=== PATIENT | female | born 1965 | race Caucasian/White ===

== ENCOUNTER → 2016-10-20 | Outpatient (REF) | payer BC ==
[2016-10-20 11:59] LABS: ALBUMIN 3.8 GM/DL (3.2-5.2); ALBUMIN/GLOBULIN RATIO 1.12 (1.00-1.93); ALKALINE PHOSPHATASE 56 U/L (45-117); ALT/SGPT 16 U/L (12-78); ANION GAP 6 MEQ/L (8-16); AST/SGOT 12 U/L (15-37); BILIRUBIN,TOTAL 0.5 MG/DL (0.2-1.0); BLOOD UREA NITROGEN 15 MG/DL (7-18); CALCIUM LEVEL 8.6 MG/DL (8.5-10.1); CARBON DIOXIDE LEVEL 28 MEQ/L (21-32); CHLORIDE LEVEL 108 MEQ/L (98-107); CHOLESTEROL LEVEL 166 MG/DL (<200); CREATININE FOR GFR 0.83 MG/DL (0.55-1.02); GLOMERULAR FILTRATION RATE > 60.0 (>51); GLUCOSE, FASTING 87 MG/DL (70-105); POTASSIUM SERUM 4.8 MEQ/L (3.5-5.1); SODIUM LEVEL 142 MEQ/L (136-145); TOTAL PROTEIN 7.2 GM/DL (6.4-8.2); TRIGLYCERIDES LEVEL 98 MG/DL (<150)
== END ==
LOC: M SFHCLERA 08:30
PROVIDERS: ATTEND Family Medicine
DX: E78.2 Mixed hyperlipidemia (principal)

== ENCOUNTER → 2018-02-13 | Outpatient (REF) | payer OTHER, MEDICAID ==
[2018-02-13 11:27] LABS: CHOLESTEROL LEVEL 240 MG/DL (<200); CHOLESTEROL RISK RATIO 5.333 (<5); HDL CHOLESTEROL 45 MG/DL (>40); LDL CHOLESTEROL 168.4 MG/DL (<100); NON-HDL-C 195 MG/DL; TRIGLYCERIDES LEVEL 133 MG/DL (<150)
== END ==
LOC: M SFHCLERA 08:13
DX: Z13.220 Encounter for screening for lipoid disorders (principal)

== ENCOUNTER → 2019-03-12 | Outpatient (REF) | payer BC ==
[2019-03-12 11:50] LABS: BASO # 0.1 10^3/uL (0.0-0.2); BASO % 1.2 % (0.0-1.0); EOS # 0.1 10^3/uL (0.0-0.50); EOS % 2.1 % (0.0-3.0); HEMATOCRIT 42.8 % (36.0-47.0); HEMOGLOBIN 13.9 g/dl (12.0-15.5); LYMPH # 2.4 10^3/uL (1.5-4.5); LYMPH % 41.5 % (24.0-44.0); MEAN CORPUSCULAR HEMOGLOBIN 30.4 pg (27.0-33.0); MEAN CORPUSCULAR HGB CONC 32.5 g/dl (32.0-36.5); MEAN CORPUSCULAR VOLUME 93.7 fl (80.0-96.0); MONO # 0.4 10^3/uL (0.0-0.8); MONO % 6.6 % (0.0-5.0); NEUTROPHILS # 2.8 10^3/uL (1.8-7.7); NEUTROPHILS % 48.4 % (36.0-66.0); PLATELET COUNT, AUTOMATED 233 10^3/uL (150-450); RED BLOOD COUNT 4.57 10^6/uL (4.00-5.40); WHITE BLOOD COUNT 5.7 10^3/uL (4.0-10.0)
[2019-03-12 12:18] LABS: CHOLESTEROL RISK RATIO 4.666 (<5)
== END ==
LOC: M SFHCLERA 08:41
PROVIDERS: ATTEND Family Medicine
DX: R59.9 Enlarged lymph nodes, unspecified (principal); E78.5 Hyperlipidemia, unspecified

== ENCOUNTER 2019-12-04 07:28 | Emergency (ER) | payer BC ==
[~2019-12-04] VITALS: Ht 175.3 cm; Wt 96.3 kg
[2019-12-04] MEDS ORDERED: KETOROLAC 30 MG/ML VIAL (J1885) IV ONE (08:15)
[2019-12-04 08:31] LABS: BASO # 0.1 10^3/uL (0.0-0.2); BASO % 0.8 % (0.0-1.0); EOS # 0.1 10^3/uL (0.0-0.5); EOS % 1.8 % (0.0-3.0); HEMATOCRIT 45.3 % (36.0-47.0); HEMOGLOBIN 14.8 g/dl (12.0-15.5); LYMPH # 2.8 10^3/uL (1.5-5.0); LYMPH % 42.3 % (24.0-44.0); MEAN CORPUSCULAR HEMOGLOBIN 29.8 pg (27.0-33.0); MEAN CORPUSCULAR HGB CONC 32.7 g/dl (32.0-36.5); MEAN CORPUSCULAR VOLUME 91.1 fl (80.0-96.0); MONO # 0.5 10^3/uL (0.0-0.8); MONO % 7.4 % (0.0-5.0); NEUTROPHILS # 3.2 10^3/uL (1.5-8.5); NEUTROPHILS % 47.5 % (36.0-66.0); PLATELET COUNT, AUTOMATED 232 10^3/uL (150-450); RED BLOOD COUNT 4.97 10^6/uL (4.00-5.40); WHITE BLOOD COUNT 6.6 10^3/uL (4.0-10.0)
--- NOTE | 2019-12-04 08:42 | REP ---
Portable chest x-ray: Single view. History: Chest pain. Comparison chest x-ray: March 12, 2019. Findings: EKG monitoring electrodes overlie the chest. Lungs are well inflated and clear. The pleural angles are sharp. Heart size is normal. Pulmonary vasculature is not increased. No significant bony abnormalities seen. Impression: No acute disease. Electronically Signed by Michel Arreola MD 12/04/2019 08:33 A
[2019-12-04 08:57] LABS: BLOOD UREA NITROGEN 17 MG/DL (7-18); CARBON DIOXIDE LEVEL 27 MEQ/L (21-32); CHLORIDE LEVEL 107 MEQ/L (98-107); CK-MB VALUE MASS < 1.0 NG/ML (<3.6); CPK CREATINE PHOSPHOKINASE 68 U/L (26-192); CREATININE FOR GFR 0.94 MG/DL (0.55-1.30); GLOMERULAR FILTRATION RATE > 60.0 (>51); GLUCOSE, FASTING 94 MG/DL (70-100); MB/CK RELATIVE INDEX 1.47 (< OR =4); POTASSIUM SERUM 4.3 MEQ/L (3.5-5.1); SODIUM LEVEL 141 MEQ/L (136-145); TROPONIN I < 0.02 NG/ML (< 0.10)
[2019-12-04] MEDS ORDERED: ISOVUE-370 76% 100ML VIAL (Q9967) As Ordered ONE (09:34)
--- NOTE | 2019-12-04 10:11 | REP ---
CT pulmonary angiogram: With IV contrast. History: Rule out left-sided pulmonary embolus. Chest pain. Comparison studies: Comparison made with chest x-ray from this date. No comparison chest CT study. Contrast dose: 75 ML of Isovue [address] technique: Helical scanning is acquired and overlapping 1.5 mm and contiguous 3 mm axial images are reformatted. In addition, maximum intensity projection and multiplanar re-formation images are generated in sagittal and coronal imaging projections. CT pulmonary angiographic findings: There is good opacification in the pulmonary arterial tree. There is no evidence of vessel cutoff or filling defect to suggest pulmonary embolism. Thoracic aorta shows no evidence of aneurysm or dissection. No pleural or pericardial effusion is seen. No hilar or mediastinal mass or adenopathy is observed. There is a small sliding-type hiatal hernia. No adrenal lesion is seen. Visualized upper abdominal structures are unremarkable. There is a nodular density in the left breast containing a small calcific or metallic density. Review of a remote prior left breast mammography demonstrates a needle biopsy marker clip in this nodule. This is consistent with a benign fibroadenoma. No other extrathoracic finding. Bone window settings show no bony destructive lesion. The lung quiñonez are clear except for granulomatous calcifications which are scattered in the left lung. No significant pulmonary nodule is appreciated. Impression: No CT evidence of pulmonary embolus. Scattered granulomatous calcifications in the left lung. No active cardiopulmonary disease seen. Small sliding hiatal hernia. Electronically Signed by Michel Arreola MD 12/04/2019 10:02 A
[2019-12-04 11:14] LABS: CK-MB VALUE MASS < 1.0 NG/ML (<3.6); CPK CREATINE PHOSPHOKINASE 65 U/L (26-192); MB/CK RELATIVE INDEX 1.54 (< OR =4); TROPONIN I < 0.02 NG/ML (< 0.10)
[2019-12-04] MEDS ORDERED: NAPR-837 PO (11:24)
[2019-12-04 11:30] VITALS: BP 116/62
--- NOTE | 2019-12-05 06:51 | ECGEPIP ---
[facility] - ED Test Date: 2019-12-04 Pat Name: JACOB HUFF Department: Room: - Gender: Female Linen Folder: : 1965 Requested By: Jroge Brink Order Number: [id number] Reading MD: Jorge Osorio Measurements Intervals [place] Rate: 82 P: 11 ID: 158 QRS: -15 QRSD: 93 T: 29 QT: 375 QTc: 439 Interpretive Statements SINUS RHYTHM POOR R WAVE PROGRESSION MODERATE VOLTAGE CRITERIA FOR LVH, CONSIDER NORMAL VARIANT NONSPECIFIC T-WAVE ABNORMALITY NO PRIORS FOR COMPARISON Electronically Signed on 12-05-2019 6:51:13 EST by Jorge Osorio
--- NOTE | 2019-12-05 06:52 | ECGEPIP ---
[facility] - ED Test Date: 2019-12-04 Pat Name: JACOB HUFF Department: Room: - Gender: Female Clinical Trials Data Coordinator: : 1965 Requested By: Jorge Brink Order Number: [id number] Reading MD: Estrella Valdez Measurements Intervals [place] Rate: 73 P: 1 IA: 164 QRS: -14 QRSD: 89 T: -4 QT: 392 QTc: 433 Interpretive Statements SINUS RHYTHM VOLTAGE CRITERIA FOR LVH NSTTW abnormalities DECREASED RATE 12/04/19 Electronically Signed on 12-05-2019 6:51:48 EST by Estrella Valdez
== END 2019-12-04 11:38 | disposition home or self-care (01) ==
LOC: M ED 07:28
DX: R07.89 Other chest pain (principal); S46.912A Strain of unspecified muscle, fascia and tendon at shoulder and upper arm level, left arm, initial encounter; X58.XXXA Exposure to other specified factors, initial encounter; Y92.9 Unspecified place or not applicable; Y93.9 Activity, unspecified; Y99.9 Unspecified external cause status; R91.8 Other nonspecific abnormal finding of lung field
CPT/HCPCS: 71045; 71275; 80048; 82550; 82553; 84484; 85025; 85379; 93005; 93041; 94760; 96374; 99285; J1885; Q9967

== ENCOUNTER → 2020-03-24 | Outpatient (REF) | payer BC ==
[~2020-03-24] MED LIST: NAPR-837 PO
[2020-03-24 12:21] LABS: BASO % 0.8 % (0.0-1.0); EOS # 0.1 10^3/uL (0.0-0.5); EOS % 1.4 % (0.0-3.0); HEMATOCRIT 46.6 % (36.0-47.0); HEMOGLOBIN 14.9 g/dl (12.0-15.5); LYMPH # 2.2 10^3/uL (1.5-5.0); LYMPH % 42.5 % (24.0-44.0); MEAN CORPUSCULAR VOLUME 93.8 fl (80.0-96.0); MONO # 0.4 10^3/uL (0.0-0.8); MONO % 8.6 % (0.0-5.0); NEUTROPHILS # 2.4 10^3/uL (1.5-8.5); NEUTROPHILS % 46.5 % (36.0-66.0); PLATELET COUNT, AUTOMATED 223 10^3/uL (150-450); RED BLOOD COUNT 4.97 10^6/uL (4.00-5.40); WHITE BLOOD COUNT 5.1 10^3/uL (4.0-10.0)
[2020-03-24 12:49] LABS: CHOLESTEROL RISK RATIO 5.869 (<5); THYROID STIMULATING HORMONE 0.983 uIU/ML (0.358-3.740)
[2020-03-25 09:33] LABS: HEPATITIS C VIRUS ABY INDEX 0.2 INDEX (<0.8)
== END ==
LOC: M SFHCLERA 09:05
PROVIDERS: ATTEND Family Medicine
DX: Z11.59 Encounter for screening for other viral diseases (principal); E78.2 Mixed hyperlipidemia; R00.2 Palpitations

== ENCOUNTER → 2022-07-20 | Outpatient (CLI) | payer OTHER | LOC: M WHC 08:22 | PROVIDERS: ATTEND Nurse Practitioner Family | DX: Z12.31 Encounter for screening mammogram for malignant neoplasm of breast (principal) ==

== ENCOUNTER → 2023-05-18 | Outpatient (CLI) | payer OTHER | LOC: M PLARAD 07:45 | PROVIDERS: ATTEND Orthopaedic Surgery Hand Surgery | DX: M25.532 Pain in left wrist (principal) ==

== ENCOUNTER 2023-07-03 07:18 | Day surgery (SDC) | payer OTHER ==
[~2023-07-03] VITALS: Ht 175.3 cm; Wt 79.5 kg
[~2023-07-03 07:18] MED LIST changes: +SEMA1PEN4 SQ; +SIMV20TA22 PO; +ceFAZolin SOD 2 GM in IV 1 EA IV ONE
[2023-07-03] MEDS ORDERED: fentaNYL 100 MCG/2 ML INJECTION As Ordered ONE (07:49)
[2023-07-03] MEDS ORDERED: ONDANSETRON 4MG 2ML VIAL As Ordered ONE (07:50)
[2023-07-03] MEDS ORDERED: propofoL 200 MG/20 ML VIAL As Ordered ONE (07:50)
[2023-07-03] MEDS ORDERED: LIDOCAINE 2% 100MG/5ML SDV (FOR ANES.) As Ordered ONE (07:50)
[2023-07-03] MEDS ORDERED: MIDAZOLAM INJ 2MG/2ML VIAL As Ordered ONE (07:50)
[2023-07-03] MEDS ORDERED: ACETAMINOPHEN 1000MG 100ML IV BAG As Ordered ONE (07:54)
[2023-07-03] MEDS ORDERED: KETOROLAC 60MG 2ML VIAL As Ordered ONE (07:54)
[2023-07-03] MEDS ORDERED: LR 1,000 ML IV SCH ×2 (08:05→09:40)
[2023-07-03] MEDS ORDERED: BACITRACIN OINTMENT 30GM TUBE As Ordered ONE (08:39)
[2023-07-03] MEDS ORDERED: fentaNYL 100 MCG/2 ML INJECTION IV PRN (09:40)
[2023-07-03] MEDS ORDERED: HYDROMORPHONE HCL 0.5 MG/ 0.5 ML SYRINGE IV PRN (09:40)
[2023-07-03] MEDS ORDERED: oxyCODONE 5MG TAB PO PRN (09:40)
[2023-07-03] MEDS ORDERED: ONDANSETRON 4MG 2ML VIAL IV PRN (09:40)
[2023-07-03 10:22] VITALS: BP 133/64; TEMP 97.5; O2SAT 98
== END 2023-07-03 10:55 | disposition home or self-care (01) ==
LOC: M SDC 07:18
PROVIDERS: ATTEND Orthopaedic Surgery Hand Surgery
DX: D21.12 Benign neoplasm of connective and other soft tissue of left upper limb, including shoulder (principal); E78.00 Pure hypercholesterolemia, unspecified; Z79.899 Other long term (current) drug therapy; Z79.84 Long term (current) use of oral hypoglycemic drugs
CPT/HCPCS: 26115; 88305; 88341; 88342; J0131; J0665; J0690; J1100; J1885; J2250; J2405; J3010

== ENCOUNTER → 2023-07-12 | Outpatient (CLI) | payer OTHER ==
[~2023-07-12] MED LIST changes: -ceFAZolin SOD 2 GM in IV 1 EA IV ONE
== END ==
LOC: M WHC 06:52
PROVIDERS: ATTEND Student in an Organized Health Care Education/Training Program
DX: R10.2 Pelvic and perineal pain (principal)

== ENCOUNTER → 2023-09-07 | Outpatient (REF) | payer OTHER | LOC: M SFHCWAGY 13:22 | PROVIDERS: ATTEND Nurse Practitioner Family | DX: Z12.4 Encounter for screening for malignant neoplasm of cervix (principal); N95.2 Postmenopausal atrophic vaginitis | CPT/HCPCS: 87624; G0123 ==

== ENCOUNTER → 2023-10-12 | Outpatient (CLI) | payer OTHER | LOC: M WHC 07:03 | PROVIDERS: ATTEND Nurse Practitioner Family | DX: N83.202 Unspecified ovarian cyst, left side (principal) ==

== ENCOUNTER 2025-04-28 06:47 | Day surgery (SDC) | payer OTHER ==
[~2025-04-28] VITALS: Ht 175.3 cm; Wt 79.2 kg
[~2025-04-28 06:47] MED LIST changes: +ROSU10TA61 PO; +SEMA2.4P SQ
[2025-04-28 08:44] VITALS: TEMP 98.6
[2025-04-28 08:55] VITALS: BP 137/61; O2SAT 100
== END 2025-04-28 08:57 | disposition home or self-care (01) ==
LOC: M OPP 06:47
PROVIDERS: ATTEND Internal Medicine Gastroenterology
DX: Z12.11 Encounter for screening for malignant neoplasm of colon (principal); K64.0 First degree hemorrhoids; Z79.85 Long-term (current) use of injectable non-insulin antidiabetic drugs; Z79.899 Other long term (current) drug therapy